=== PATIENT | male | born 1950 | race Caucasian/White ===

== ENCOUNTER 2023-06-23 07:16 | Day surgery (SDC) | payer MEDICARE, OTHER ==
[2023-06-22 11:04] VITALS: BMI 27.9
[2023-06-23] MEDS ORDERED: EPINEPHrine 1 MG/ML AMP ONE (08:53)
[2023-06-23] MEDS ORDERED: Lidocaine 1% (PF) 30 ML VIAL ONE (08:53)
[2023-06-23] MEDS ORDERED: fentaNYL PF 100 MCG/2 ML SYRINGE ONE (09:02)
[2023-06-23] MEDS ORDERED: SUGAMMADEX SODIUM 200 MG/2 ML VIAL ONE (09:02)
[2023-06-23 09:03] LABS: Anion Gap 14 mmol/L (10-20); BUN (Urea Nitrogen) 10 mg/dL (8.4-25.7); Calc. Creatinine Clearance 84 mL/min (70-130); Calcium 9.3 mg/dL (7.8-10.44); Carbon Dioxide 25 mmol/L (23-31); Chloride 102 mmol/L (98-107); Estimated GFR 80; Glucose 95 mg/dL (83-110); Sodium 137 mmol/L (136-145)
[2023-06-23] MEDS ORDERED: Lidocaine 1% PF 5 ML VIAL ONE (09:30)
[2023-06-23] MEDS ORDERED: Dexamethasone 20 MG/5 ML VIAL ONE (09:30)
[2023-06-23] MEDS ORDERED: Ondansetron PF 4 MG/2 ML Vial ONE (09:30)
[2023-06-23] MEDS ORDERED: PROPOFOL 200 MG/20 ML VIAL ONE (09:30)
[2023-06-23] MEDS ORDERED: Rocuronium Bromide 10 MG/ML (10ML VIAL) ONE (09:30)
[2023-06-23] MEDS ORDERED: fentaNYL 50 mcg/mL 1 mL Vial ONE ×2 (10:11→10:39)
== END 2023-06-23 11:45 | disposition home or self-care (01) ==
LOC: SDC 07:16
PROVIDERS: ATTEND Otolaryngology Plastic Surgery within the Head & Neck
PROC: 0CBM8ZX Excision of Pharynx, Via Natural or Artificial Opening Endoscopic, Diagnostic (ICD-10-PCS; principal; 2023-06-23)
DX: C01 Malignant neoplasm of base of tongue (principal); J34.3 Hypertrophy of nasal turbinates; J34.89 Other specified disorders of nose and nasal sinuses; Z79.899 Other long term (current) drug therapy
CPT/HCPCS: 31536; 80048; 93005; J3010; 88305; 88341; 88342; 93010; J0171; J1100; J2001; J2405; J2704